=== PATIENT | female | born 1980 | race Caucasian/White ===

== ENCOUNTER 2017-03-11 10:03 | Outpatient (CLI) | payer BC ==
[2017-03-11] VITALS (9 sets, daily range): BP systolic 140–173; BP diastolic 69–97
[~2017-03-11 10:03] MED LIST: ALDACTAZIDE 251 EACH PO; AMARYL1 MG PO; AMLODIPINE BESYL5 MG PO; ATHENOL325 MG PO; CELEXA10 MG PO; CITALOPRAM HBR10 MG PO; CITALOPRAM HBR20 MG PO; CLINDAMYCIN HC300 MG PO; FISH OIL CONC1 EACH PO; FLOVENT 22120 INHALA IH; GLUCOPHAGE1000 MG PO; HYDROCODON-ACE1 EAC7 PO; METHYLDOPA500 MG PO; MULTIPLE VITAM1 EACH PO; PROAIR HFA8.5 GM IH; SPIRONOLACTONE25 MG PO; XANAX0.5 MG PO
[2017-03-11 11:28] LABS: EOSINOPHIL (%) 3.9 % (0-5); EOSINOPHIL COUNT 0.3 K/uL (0-0.3); HEMATOCRIT 32.2 % (36.0-46.0); IMMATURE GRANULOCYTE (%) 0.4 % (0.0-0.7); INSTRUMENT ABS NEUTROPHIL CT 5.3 K/uL; LYMPHOCYTE COUNT 2.3 K/uL (1.0-2.8); MCH 27.8 PG (29.0-34.0); MCHC 32.6 G/DL (30.0-36.0); MCV 85.2 FL (83-99); MEAN PLAT.VOLUME 11.9 uM^3 (9.5-12.4); MONOCYTE (%) 6.5 % (3-12); MONOCYTE COUNT 0.6 K/uL (0-0.8); NEUTROPHIL (%) 62.2 % (45-76); NEUTROPHIL COUNT 5.3 K/uL (1.8-6.4); PLATELET COUNT 201 K/uL (156-360); RBC DIS.WIDTH-CV 11.9 % (11.8-14.6); RBC DIS.WIDTH-SD 36.4 % (39-53); RED BLOOD COUNT 3.78 M/uL (3.80-5.20); WHITE BLOOD COUNT 8.5 K/uL (4.1-10.2)
[2017-03-11 11:54] LABS: ALKALINE PHOSPHATASE 110 IU/L (3-129); ANION GAP 7 MEQ/L (2-14); CHLORIDE 107 MEQ/L (99-109); GFR ESTIMATE (CALCULATED) > 59 mL/min/; GLUCOSE 81 mg/dL (70-99); POTASSIUM 3.9 MEQ/L (3.7-5.4); SAMPLE HEMOLYSIS CHECK 0; SAMPLE ICTERIC CHECK 0; SAMPLE LIPEMIA CHECK 0; SODIUM 136 MEQ/L (136-147); TOTAL BILIRUBIN 0.6 MG/DL (0.0-1.0); UREA NITROGEN (BUN) 7 mg/dL (9-23)
[2017-03-11 12:19] LABS: UR CREATININE CONCENTRATION 273.8 MG/DL
== END 2017-03-11 13:10 | disposition home or self-care (01) ==
LOC: LDRP-OP 10:03 → 2WEST 10:04 → LDRP-OP 05-18 07:09
PROVIDERS: Midwife
DX: O13.3 Gestational [pregnancy-induced] hypertension without significant proteinuria, third trimester (principal); Z3A.34 34 weeks gestation of pregnancy; O99.343 Other mental disorders complicating pregnancy, third trimester; F32.9 Major depressive disorder, single episode, unspecified
CPT/HCPCS: 59025; 80053; 82570; 84156; 85025; G0378

== ENCOUNTER 2017-03-24 09:47 | Inpatient (IN) | payer BC ==
[2017-03-24] VITALS (19 sets, daily range): BP systolic 118–188; BP diastolic 63–95
[~2017-03-24] VITALS: Ht 170.2 cm; Wt 113.6 kg
[2017-03-24] MEDS ORDERED: ALDOMET250 MG PO (10:25)
[2017-03-24 11:22] LABS: BASOPHIL COUNT 0.1 K/uL (0-0.1); EOSINOPHIL (%) 3.9 % (0-5); EOSINOPHIL COUNT 0.3 K/uL (0-0.3); HEMATOCRIT 31.3 % (36.0-46.0); IMMATURE GRANULOCYTE (%) 0.3 % (0.0-0.7); INSTRUMENT ABS NEUTROPHIL CT 4.3 K/uL; MCH 27.2 PG (29.0-34.0); MCHC 32.3 G/DL (30.0-36.0); MCV 84.4 FL (83-99); MEAN PLAT.VOLUME 12.8 uM^3 (9.5-12.4); MONOCYTE (%) 7.5 % (3-12); MONOCYTE COUNT 0.5 K/uL (0-0.8); NEUTROPHIL (%) 60.4 % (45-76); NEUTROPHIL COUNT 4.3 K/uL (1.8-6.4); PLATELET COUNT 194 K/uL (156-360); RBC DIS.WIDTH-CV 12.1 % (11.8-14.6); RED BLOOD COUNT 3.71 M/uL (3.80-5.20); WHITE BLOOD COUNT 7.2 K/uL (4.1-10.2)
[2017-03-24 12:01] LABS: ANION GAP 8 MEQ/L (2-14); CHLORIDE 111 MEQ/L (99-109); POTASSIUM 4.1 MEQ/L (3.7-5.4); SAMPLE HEMOLYSIS CHECK 0; SAMPLE ICTERIC CHECK 0; SAMPLE LIPEMIA CHECK 0; SODIUM 140 MEQ/L (136-147); TOTAL BILIRUBIN 0.5 MG/DL (0.0-1.0)
[2017-03-24 12:06] LABS: ALKALINE PHOSPHATASE 127 IU/L (3-129); GFR ESTIMATE (CALCULATED) > 59 mL/min/; GLUCOSE 70 mg/dL (70-99); UREA NITROGEN (BUN) 9 mg/dL (9-23)
[2017-03-24 12:15] LABS: UR CREATININE CONCENTRATION 263.4 MG/DL
[2017-03-25] VITALS (21 sets, daily range): BP systolic 117–159; BP diastolic 56–83
[2017-03-26] VITALS (24 sets, daily range): BP systolic 110–158; BP diastolic 54–82
[2017-03-27] VITALS (23 sets, daily range): BP systolic 117–160; BP diastolic 62–94
[2017-03-28] VITALS (19 sets, daily range): BP systolic 126–188; BP diastolic 61–97
[2017-03-28] MEDS ORDERED: IBUPROFEN800 MG PO (10:45)
[2017-03-28] MEDS ORDERED: ENDOCET 5-3251 EACH PO (10:45)
[2017-03-29 07:11] LABS: EOSINOPHIL (%) 0.2 % (0-5); HEMATOCRIT 27.7 % (36.0-46.0); IMMATURE GRANULOCYTE (%) 0.4 % (0.0-0.7); IMMATURE GRANULOCYTE COUNT 0.1 K/uL; INSTRUMENT ABS NEUTROPHIL CT 14.3 K/uL; LYMPHOCYTE COUNT 2.2 K/uL (1.0-2.8); MCHC 32.5 G/DL (30.0-36.0); MCV 83.2 FL (83-99); MEAN PLAT.VOLUME 13.5 uM^3 (9.5-12.4); MONOCYTE (%) 6.8 % (3-12); MONOCYTE COUNT 1.2 K/uL (0-0.8); NEUTROPHIL (%) 80.2 % (45-76); NEUTROPHIL COUNT 14.3 K/uL (1.8-6.4); PLATELET COUNT 149 K/uL (156-360); RBC DIS.WIDTH-CV 12.1 % (11.8-14.6); RBC DIS.WIDTH-SD 37.1 % (39-53); RED BLOOD COUNT 3.33 M/uL (3.80-5.20); WHITE BLOOD COUNT 17.9 K/uL (4.1-10.2)
[2017-03-29 19:27] VITALS: BP 136/73
[2017-03-30 03:02] VITALS: BP 136/70
[2017-03-30 07:35] VITALS: BP 136/73
[2017-03-30 11:53] VITALS: BP 146/86
[2017-03-30 16:00] VITALS: BP 157/74
[2017-03-31 02:03] LABS: EOSINOPHIL (%) 1.5 % (0-5); EOSINOPHIL COUNT 0.2 K/uL (0-0.3); HEMATOCRIT 31.1 % (36.0-46.0); IMMATURE GRANULOCYTE (%) 0.4 % (0.0-0.7); IMMATURE GRANULOCYTE COUNT 0.1 K/uL; INSTRUMENT ABS NEUTROPHIL CT 10.6 K/uL; LYMPHOCYTE COUNT 0.8 K/uL (1.0-2.8); MCH 27.1 PG (29.0-34.0); MCHC 30.9 G/DL (30.0-36.0); MCV 87.9 FL (83-99); MEAN PLAT.VOLUME 12.8 uM^3 (9.5-12.4); MONOCYTE COUNT 0.5 K/uL (0-0.8); NEUTROPHIL COUNT 10.6 K/uL (1.8-6.4); PLATELET COUNT 147 K/uL (156-360); RBC DIS.WIDTH-CV 12.4 % (11.8-14.6); RBC DIS.WIDTH-SD 39.8 % (39-53); RED BLOOD COUNT 3.54 M/uL (3.80-5.20); WHITE BLOOD COUNT 12.2 K/uL (4.1-10.2)
[2017-03-31 07:30] VITALS: BP 144/71
[2017-03-31 11:30] VITALS: BP 145/70
[2017-03-31 14:45] VITALS: BP 139/67
[2017-03-31 19:27] VITALS: BP 140/70
[2017-03-31 23:01] VITALS: BP 161/78
[2017-04-01 03:28] VITALS: BP 162/88
[2017-04-01 07:54] VITALS: BP 135/74
[2017-04-01 10:56] VITALS: BP 146/78
== END 2017-04-01 13:25 | disposition home or self-care (01) | DRG 765 ==
LOC: LDRP-OP 09:47 → 2WEST 09:48 → LDRP-OP 05-18 14:23
PROVIDERS: Midwife; Obstetrics & Gynecology Gynecology
PROC: 10907ZC Drainage of Amniotic Fluid, Therapeutic from Products of Conception, Via Natural or Artificial Opening (ICD-10-PCS; principal; 2017-03-28)
PROC: 00HU33Z Insertion of Infusion Device into Spinal Canal, Percutaneous Approach (ICD-10-PCS; principal; 2017-03-28)
PROC: 3E0P7VZ Introduction of Hormone into Female Reproductive, Via Natural or Artificial Opening (ICD-10-PCS; principal; 2017-03-28)
PROC: 10D00Z1 Extraction of Products of Conception, Low, Open Approach (ICD-10-PCS; principal; 2017-03-28)
PROC: 3E0S3BZ Introduction of Anesthetic Agent into Epidural Space, Percutaneous Approach (ICD-10-PCS; principal; 2017-03-28)
DX: O61.0 Failed medical induction of labor (principal); O10.02 Pre-existing essential hypertension complicating childbirth; O62.0 Primary inadequate contractions; Z37.0 Single live birth; Z68.37 Body mass index [BMI] 37.0-37.9, adult; G47.30 Sleep apnea, unspecified; E66.01 Morbid (severe) obesity due to excess calories; J45.909 Unspecified asthma, uncomplicated; O99.824 Streptococcus B carrier state complicating childbirth; Z3A.37 37 weeks gestation of pregnancy; O99.214 Obesity complicating childbirth; O99.52 Diseases of the respiratory system complicating childbirth; O99.344 Other mental disorders complicating childbirth; F41.9 Anxiety disorder, unspecified; F32.9 Major depressive disorder, single episode, unspecified; D62 Acute posthemorrhagic anemia; O99.02 Anemia complicating childbirth
CPT/HCPCS: 80053; 82570; 84156; 85025; 94640; 94640 76; 99202; C1755; G0378; J0595; J0702; J1100; J1580; J2175; J2274; J2405; J2550; J2590; J2765; J7050; J7120